=== PATIENT | female | born 1955 | race Caucasian/White ===

== ENCOUNTER 2024-03-10 06:21 | Observation (INO) ==
--- NOTE | 2023-11-04 10:05 | PAT Medication Instructions ---
Medication Instructions Date of Service November 04, 2023 Home Medications Medication Instructions Recorded Wheeled Walker #1 ea 11/08/22 meloxicam 15 mg tablet 15 mg PO DAILY PRN pain #30 tabs 09/16/23 acetaminophen 325 mg tablet (Tylenol) 325 mg PO QID PRN Pain lisinopril 20 mg-hydrochlorothiazide 25 mg tablet 1 tab PO QAM omeprazole 40 mg capsule,delayed release 40 mg PO QAM meloxicam 15 mg tablet 15 mg PO DAILY PRN pain multivitamin 1 tab PO QAM ASK your surgeon for instructions meloxicam 15 mg tablet 15 mg PO DAILY PRN pain DO NOT take the morning of surgery lisinopril 20 mg-hydrochlorothiazide 25 mg tablet 1 tab PO QAM multivitamin 1 tab PO QAM Take morning of surgery With a small sip of water, OTHERWISE NOTHING TO EAT OR DRINK AFTER MIDNIGHT: acetaminophen 325 mg tablet (Tylenol) 325 mg PO QID PRN Pain (if needed) omeprazole 40 mg capsule,delayed release 40 mg PO QAM Take evening before surgery acetaminophen 325 mg tablet (Tylenol) 325 mg PO QID PRN Pain (if needed) Other Notes If you have any questions please call us at [phone] or [phone] or [phone] or [phone]
--- NOTE | 2023-11-10 10:15 | Anesthesiology Consultation ---
Date of Service November 10, 2023 Assessment & Plan (1) Encounter for pre-operative examination: - Check CBC with diff DOS (receiving perioperative Zarxio perioperative protocol per [facility] heme) - Infectious disease screening: Per assessment on 11/10/23: No known infectious disease contacts or current infectious disease symptoms. No noted recent Covid positive test result. - Outpatient joint assessment: Pt currently scheduled for inpatient pathway. If surgeon requests review for outpatient joint pathway, patient is not recommended candidate for outpatient joint program from anesthesia standpoint based on available information. - [facility] hematology visit (09/23/23): "68-year-old female, who has chronic neutropenia at least since 2017, mild anemia noted in the recent blood workup, no thrombocytopenia, no repeated infections. I reviewed with regarding the bone marrow findings, overall bone marrow does not show any primary bone marrow disorder, no evidence of leukemia lymphoma or myelodysplastic syndrome. NGS checkup negative, normal female chromosome noted.. Peripheral destruction would be the possible cause for neutropenia in her case, could be autoimmune. No stigmata of underlying autoimmune disorder. At present will observe. No repeated infections.. She is going for right knee replacement surgery by Dr. Jim. I would consider for prophylactic Neupogen (G-CSF) in her case, starting 2 days before the planned surgery and then every other day for about 2 weeks after surgery. Would like to check CBCD before the Neupogen injection and then before the surgery to see how she response with the G-CSF. I am expecting a good response with G-CSF in her case. If she does not go for surgery, I would like to check CBCD every 3 monthly" > D/t insurance coverage, decision for patient to have perioperative Zarxio. - [facility] heme/onc arranging perioperative Zarxio for chronic neutropenia (scheduled injections 12/08 and 12/09). Will recheck CBCD DOS. Chart Review Chart Review: Acceptable Risk for Surgery and Patient seen in Pre Admission Testing Teaching & Discussion Pre-Anesthesia Teaching/Discussion Notes: Instructed NPO after midnight before surgery,except medications with 15 cc of water. Medication instructions provided according to the PAT guidelines. History Surgery Operation Date: 12/10/23 10:40 Proposed Procedures p Right Total Knee Arthroplasty - Hardik Jim MD Height/Weight Height: 5 ft 3 in Weight: 83.8 kg Allergies Allergy/AdvReac Type Severity Reaction Status Date / Time No Known Drug Allergies Allergy Unknown NKDA Verified 11/03/23 15:24 Medications Home Medications Medication Instructions Recorded Confirmed Last Taken acetaminophen 325 mg tablet 325 mg PO QID PRN Pain 01/14/20 11/03/23 01/18/20 09:00 (Tylenol) lisinopril 20 1 tab PO QAM 01/14/20 11/03/23 01/18/20 09:00 mg-hydrochlorothiazide 25 mg tablet omeprazole 40 mg capsule,delayed 40 mg PO QAM 01/14/20 11/03/23 01/19/20 05:15 release Wheeled Walker #1 ea 11/08/22 11/08/22 Unknown meloxicam 15 mg tablet 15 mg PO DAILY PRN pain #30 tabs 09/16/23 11/03/23 Unknown multivitamin 1 tab PO QAM 11/03/23 11/03/23 Unknown Past Medical History Medical History Chronic anemia Leukopenia Monitored by heme (Dr. Maurer/[facility]) History of blood transfusion Perioperative blood transfusion with left TKA Obesity Osteoarthritis GERD (gastroesophageal reflux disease) HTN (hypertension) Exercise / Class Metabolic Activity II 4-5 Yardwork/Stairs/Walk up hill Past Family History Family History Other No family history of adverse response to anesthesia Past Surgical History Surgical History History of carpal tunnel release of both wrists History of arthroscopy of left knee History of cataract surgery R/L History of tooth extraction History of section x2 History of knee replacement procedure of left knee Past Anesthesia History No Hx of Anesthesia Complications and No Family Hx of Anesthesia Complications History of PONV No Hx of PONV and No Hx of Motion Sickness Social History Smoking Status: Never smoker Do You Dip or Chew Tobacco: No Hx Alcohol Use: No (hx-no longer drinks) Hx Substance Use: No substance use type: does not use Review of Systems Patient denies chest pain, shortness of breath, dyspnea on exertion, fever, chills, cough, wheezing, palpitations. Physical Exam Vital Signs VITALS BP 157/88 P 81 TEMP 97.9 SP02 98%RA RESP 16 PHYSICAL Full cervical extension range of motion. Full TMJ range of motion. TMD 3 finger breaths Mallampati Score 2 Lungs: clear throughout to auscultation Cardiac: regular rate and rhythm, no murmurs noted Spine: normal Carotid arteries: negative bruit Extremities: trace non-pitting LE edema Lab Results Anesthesia Preop Results Results Anesthesia Widget: WBC 1.84 K/ul (4.8-10.8) L 11/10/23 Hgb 10.7 g/dl (12.0-16.0) L 11/10/23 Hct 33.9 % (37.0-47.0) L 11/10/23 Plt 273 K/uL (130-400) 11/10/23 Na 140 mmol/L (136-145) 11/10/23 K 4.6 mmol/L (3.5-5.1) 11/10/23 Cl 106 mmol/L (98-107) 11/10/23 CO2 28 mmol/L (21-32) 11/10/23 BUN 31 mg/dl (6-23) H 11/10/23 Creat 0.72 mg/dl (0.6-1.2) 11/10/23 Glucose Level 93 mg/dl (70-99(Fasting)) 11/10/23 PT 10.4 Seconds (9.0-12.0) 11/10/23 PTT 30 Seconds (21-31) 11/10/23 INR 0.9 (0.9-1.1) 11/10/23 Blood Type O Positive 11/10/23 Antibody Screen NEGATIVE 11/10/23 Testing Laboratory Results *Critical neutrophil count on preop labs 11/10/23- PCP/heme made aware* Electrocardiogram Date: 11/10/23 NSR at 79bpm. RBBB. Chest X-Ray Date: 11/10/23 FINDINGS: PA and lateral chest radiographs are compared to study dated 11/25/2022. The heart is top normal for projection noting atherosclerotic calcification of the thoracic aorta. Chronic interstitial thickening similar to previous. The lungs and pleural spaces are clear. There is no pneumothorax. The skeletal structures are osteopenic. The bony thorax appears intact. Degenerative change is noted in the shoulders and spine. IMPRESSION: No active disease in the chest.
--- NOTE | 2023-11-10 12:57 | Communication Note ---
Patient had critical neutrophil count called in from the lab on 11/10/23 at 0.50. This was called to [facility] heme office who will send note to Dr. Maurer. Neutrophil and WBC ct stable from 10/2022. Has chronic neutrophilia which she follows with [facility] heme. Planning on getting Neupogen prior to surgery per 08/2023 note. CBC with diff was faxed to heme office for continuity of care.
--- NOTE | 2024-03-03 10:03 | History & Physical Report ---
Date of Service March 03, 2024 Assessment & Plan (1) Arthritis of knee, right: 68-year-old female with history of underlying leukopenia of unclear etiology with advanced right knee DJD. She also had her left knee replaced about 14 years ago and is still having some discomfort in this. Had a negative workup in the past. Plan: We discussed treatment options with the patient. She been through extensive conservative treatment of the right knee over the past 5 years. This become less successful. She become more debilitated by her pain. She like to have her right knee replaced. She does have this unexplained neutropenia followed by Dr. Maurer. They have scheduled her to get some injections in the perioperative period. Will likely put some antibiotics in her cement to decrease her risk of infection. There is cements of total knee replacement were explained to the patient and include but not limited to DVT PE infection neurological and vascular bleeding palm pain limb range of motion sepsis fairly with symptoms incomplete relief of symptoms need for further surgery in the future excetra. Patient understands and desires to proceed. Informed consent is obtained. Left to make sure she is arranged to get these injections. Will plan on DVT prophylaxis including thigh-high teds, aspirin, SCDs. She is planning on using [facility] home health program. (2) Painful total knee replacement, left: History of Present Illness Chief Complaint: . Persistent right knee pain Primary Care Provider: Renetta Blood MD . Patient is a 68-year-old female has been a long-term patient of ours for treating her right knee. She is got a long history of knee arthritis had her left knee replaced by Dr. Christopher zambrano in May 2010. She is doing okay but always had some chronic pain and dyspnea. She has been through extensive conservative treatment of her right knee. She was actually scheduled for knee replacement surgery a year ago but canceled due to low white blood count. This is been followed and managed by Dr. Maurer at [facility]. She is undergoing some intermittent transfusions. Had an extensive workup including a bone biopsy which did not show too much. She continues to be bothered by her right knee pain. She been through extensive conservative treatment over the past 5 years including injections which have become less successful over time. She now like to proceed with right knee replacement. Of note, she was scheduled with the previously but had to have a tooth removed several weeks ago. She has recovered from this. She like to have her right knee fixed. Allergies Allergy/AdvReac Type Severity Reaction Status Date / Time No Known Drug Allergies Allergy Unknown NKDA Verified 02/27/24 11:00 Home Medications Medication Instructions Recorded Confirmed Type lisinopril 20 1 tab PO QAM 01/14/20 02/27/24 History mg-hydrochlorothiazide 25 mg tablet omeprazole 40 mg capsule,delayed 40 mg PO QAM 01/14/20 02/27/24 History release Wheeled Walker #1 ea 11/08/22 11/08/22 Rx meloxicam 15 mg tablet 15 mg PO DAILY PRN pain #30 tabs 09/16/23 02/27/24 Rx multivitamin 1 tab PO QAM 11/03/23 02/27/24 History Past Med/Surg History Medical History (Updated 03/03/24 @ 10:01 by Hardik Jim MD) Painful total knee replacement, left History of abscessed tooth (~12/2023) reason most recent right knee surgery cancelled Chronic anemia Leukopenia Monitored by heme (Dr. Maurer/[facility]) History of blood transfusion Perioperative blood transfusion with left TKA Osteoarthritis GERD (gastroesophageal reflux disease) HTN (hypertension) Surgical History Hx of bilateral cataract extraction History of carpal tunnel release of both wrists History of arthroscopy of left knee History of tooth extraction History of section x2 History of knee replacement procedure of left knee Family History Other No family history of adverse response to anesthesia Social History Smoking Status: Never smoker Second Hand Exposure: No; Do You Dip or Chew Tobacco: No; Hx Alcohol Use: No Hx Substance Use: No Preferred Language: Faroese Communication Ability: Effective Staff Electrical Engineer Required: No Beliefs That Will Affect Care: None Current Living Situation: Spouse Feels Safe at Home: Yes Assistive Devices: None Review of Systems All systems reviewed & are unremarkable except as noted in HPI & below. Physical Exam . Physical exam nation reveals a pleasant middle-age female but looks in pretty good health. Examination the right knee brought patient walks a bit of a stiff knee gait. She limps on the right side. Good varus alignment to her knee. Her knee is fairly stiff with about a 10 to 15 degree flexion contracture and only bends about 95 degrees. She does have a small to moderate-sized knee effusion. No particular pain with hip motion. Examination left knee reveals well-healed incision. No detectable swelling. Fairly anatomic alignment. Range of motion 0-1 20. Constitutional WD/WN, vitals as above Neck trachea midline, no thyromegaly Respiratory normal respiratory effort, lungs clear to auscultation Cardiovascular RRR, no murmur, no edema Gastrointestinal (Abdomen) normal bowel sounds, soft, nontender, no hepatosplenomegaly Results & Data Results & Data Laboratory Results . Diagnostic Findings . X-rays of the right knee were reviewed. Shows advanced right knee DJD. She got complete loss of medial joint space. She has subchondral sclerosis. She is got osteophytes primarily medially. This has progressed over up films over the past several years. The left knee replacement looks to be in pretty good position without obvious signs of problems. May have said a little bit on the medial side. No signs of bone destruction or loosening. PG Care Time/CCT Total # of Minutes Spent Total Time Spent with Patient: Total time spent is greater than 50% in coordination of care (as documented) at patient's floor/unit and/or counseling patient: Coding Level of Care Code None Diagnoses Arthritis of knee, right M17.11 Painful total knee replacement, left T84.84XA; Z96.652
[2024-03-10] MEDS ORDERED: ROPIVACAINE 0.5% 5 MG/ML 30 ML VIAL ONE (06:26)
[2024-03-10] MEDS ORDERED: BUPIVACAINE 0.5 % 5 MG/1 ML PF 10ML VIAL ONE (06:26)
--- NOTE | 2024-03-10 06:51 | History & Physical Bridge Note ---
Date of Service March 10, 2024 History & Physical Bridge Note I have examined the patient, reviewed the History & Physical and in the interval since the performance of the History & Physical I have noted the following changes of clinical significance: no changes noted
[2024-03-10] MEDS: Scopolamine 1 MG TDSY TD SCH (07:22)
[2024-03-10] MEDS: dexAMETHasone**PF** 10 MG/ML VIAL IV SCH (07:22)
[2024-03-10] MEDS: LR 500ML BOLUS, THEN 15ML/HR IV SCH (07:22)
[2024-03-10] MEDS: METOCLOPRAMIDE HCL 10 MG TABLET PO SCH (07:23)
[2024-03-10] MEDS: CeleBREX 200 MG CAP PO SCH (07:23)
[2024-03-10] MEDS: LR 60ML/HR IV SCH (07:23)
[2024-03-10] MEDS: ACETAMINOPHEN 500 MG TAB PO SCH ×2 (07:23→13:06)
[2024-03-10] MEDS: FAMOTIDINE 20 MG TAB PO SCH (07:24)
[2024-03-10] MEDS ORDERED: MIDAZOLAM HCL 1 MG/ML 2ML VIAL ONE (07:24)
[2024-03-10] MEDS ORDERED: PROPOFOL IV EMULSION 10 MG/ML 20 ML VIAL IV ONE ×2 (07:29→10:46)
[2024-03-10 07:40] LABS: Partial Thromboplastin Ratio 1.1; Partial Thromboplastin Time 30 Seconds (21-31); Prothrombin Time 10.7 Seconds (9.0-12.0)
[2024-03-10 07:48] LABS: Calcium 9.5 mg/dl (8.6-10.3); Potassium 3.8 mmol/L (3.5-5.1)
[2024-03-10 07:52] LABS: Hematocrit (blood only) 35.4 % (37.0-47.0); Hemoglobin 11.2 g/dl (12.0-16.0); Mean Corpuscular Hemoglobin 28.6 pg (25.0-34.0); Mean Corpuscular Hgb Conc 31.6 g/dL (32.0-36.0); Mean Corpuscular Volume 90.3 fL (80.0-100.0); Platelet Count 238 K/uL (130-400); RDW Coefficient of Variation 12.8 % (11.5-14.5); RDW Standard Deviation 41.9 fL (36.4-46.3); Red Blood Count 3.92 M/uL (4.20-5.40)
[2024-03-10 07:53] LABS: Basophils # (auto) 0.08 K/uL (0.00-0.20); Basophils % (auto) 1.1 %; Dohle Bodies 2+; Eosinophils # (auto) 0.14 K/uL (0.00-0.50); Eosinophils % (auto) 1.9 %; Immature Granulocytes # (auto) 0.04 K/uL (0.01-0.20); Immature Granulocytes % (auto) 0.5 %; Lymphocytes # (auto) 1.06 K/uL (1.20-3.40); Lymphocytes % (auto) 14.1 %; Monocytes # (auto) 0.73 K/uL (0.11-0.59); Monocytes % (auto) 9.7 %; Neutrophils # (auto) 5.45 K/uL (1.40-6.50); Neutrophils % (auto) 72.7 %
[2024-03-10 07:54] LABS: BUN Creatinine Ratio 43.7 (10-20); Est GFR (African American) 102.9 ml/min; Est GFR (Non-African American) 88.8 ml/min
[2024-03-10] MEDS ORDERED: HYDROmorphone INJ 2 MG/ML SYR/VIAL IV PRN (08:51)
[2024-03-10] MEDS ORDERED: ONDANSETRON INJ 2 MG/ML 2 ML VIAL IV PRN ×2 (08:51→12:14)
[2024-03-10] MEDS ORDERED: ATROPINE SULFATE 0.1 MG/ML 10ML SYR IV PRN (08:51)
[2024-03-10] MEDS ORDERED: ePHEDrine sulfate 50 MG/ML AMP IV PRN (08:51)
[2024-03-10] MEDS ORDERED: fentaNYL citrate PF 100 MCG/2 ML VIAL IV PRN (08:51)
[2024-03-10] MEDS ORDERED: PROMETHAZINE HCL 6.25 MG in SODIUM CHLORIDE 0.9% 50 ML IV PRN (08:51)
[2024-03-10] MEDS: ceFAZolin 2000MG 2,000 MG/15 ML SYR IV SCH ×2 (09:22→17:05)
[2024-03-10] MEDS: ROPIV 0.5% 246mg, Ketorolac 30mg, EPINEPHrine 0.5mg in NSS INFIL SCH (10:17)
[2024-03-10] MEDS: VANCOMYCIN HCL 1000MG/20ML VIAL ONE (10:18)
[2024-03-10] MEDS: ORTHO JOINT ANESTHETIC ONE (10:18)
[2024-03-10] MEDS: TRANEXAMIC ACID 1,000 MG **IV Intra-op IV SCH (10:20)
--- NOTE | 2024-03-10 11:22 | Operative Report ---
PG Post Operative Report Pre & Post Diagnosis Operation Date: 03/10/24 08:50 Pre-Op Diagnosis: Right Knee Degenerative Joint Disease Post-Op Diagnosis: Right Knee Degenerative Joint Disease I identified the patient and participated in the time-out.: Yes Procedure Operation Date: 03/10/24 08:50 Actual Procedures p Right Total Knee Arthroplasty, Cemented(Right) - Hardik Jim MD Surgeon Hardik Jim MD Industrial Recruiter Delmer Diaz PA-C Estimated Blood Loss 50 Findings Consistent with Post-Op Diagnosis Operative findings revealed advanced right knee tricompartment DJD. She had extensive grade 4 [id number]-yh-aazi disease in all 3 compartments. She had a very stiff. 10 degree flexion contracture and only can bend about 90 degrees. There was a lot of scarring and adherence of the soft tissues to the bone. Diffuse osteopenia. Osteophytes in all 3 compartments. Specimens Right knee sent for pathology Anesthesia Type Spinal MAC Complications none Disposition Accompanied Patient To Recovery: No Indications Patient is a 68-year-old female is had a long history of knee problems. She had her left knee replaced in the past. Over the years she developed increased pain discomfort and stiffness in her right knee. She been scheduled for surgery on several occasions but canceled for various reasons. She has not been medically optimized and is electing to proceed with total knee arthroplasty. She had a very stiff painful knee preoperatively. Description of Procedure Operative implants consist of: 1 Biomet Vanguard size 65 right posterior by femoral component. 2. Biomet size 67 tibial tray. 3. 10 mm post stabilized polyethylene insert. 4. 31 x 8 all poly patella. The patient was taken to the operating, identified, placed on the operating tab le in the supine position. All contact areas were appropriately padded antibiotics 5 by anesthesia team. Spinal anesthetic and abductor canal block had been provided in the holding area. Fatima catheter was placed in sterile fashion. Right thigh-high tourniquet was then placed in the right lower extremities then prepped and draped in usual sterile fashion. The right leg was elevated exsanguinated with use of an Esmarch and the tourniquet was placed at 300 mmHg. An anterior approach of the right knee was then performed to longitudinal incision centered over the patella. Sharp dissection was carried through subcutaneous tissue down the extensor mechanism. A medial parapatellar arthrotomy was made. Some subperiosteal dissection was carried out medially. I had to do a synovectomy of the suprapatellar pouch as well as the medial and lateral gutters as well as quad tendon instructions were adherent to the bone itself in the distal femur. Tissue itself was benign in appearance. The lateral patellofemoral ligament was released and the knee was flexed. The osteophytes taken off distal femur. The ACL and PCL were released in the distal femur and the tibia subluxated anteriorly. The external tibial alignment jig was then placed the interface the tibia and adjusted 12 mm medially. Proximal tibial cut was made essentially flush with the most deficient aspect the posterior medial tibial plateau. Some osteophytes taken off medially. Tibia was sized to a size 67. Attention drawn the femur. The distal femur down the sharp drop with intramedullary canal was suction. A right 5 degree valgus cutting guide was placed. The distal femoral cutting block was pinned in place. The distal femoral cut was made to take an additional 3 mm of bone off distal femur. The femur was then sized to a size 65. The AP cutting block was pinned parallel to the epicondylar axis which was 4 degrees of external rotation. The anterior cut, anterior chamfer, posterior cut, posterior chamfer cuts were made. The box cutting guide was placed in just slight lateral and the box cut was made. The knee was flexed. The remnants of the medial and lateral menisci were excised. The osteophytes taken off the posterior aspect of femur. A trial femoral component was placed. The tibial tray was pinned Ashely external rotation and the drill and stem punch used to create defect in proximal tibia for the tibial tray. Knee was then trialed and 10 mm insert fit most appropriately. Attention drawn the patella. Patella was cleaned of all soft tissues. Patella thickness measured 20 mm in thickness was cut down to 12. Was sized to a size 31 patella. The lug holes were drilled for 31 patella. The lateral osteophyte was removed. Patella button was placed. Knee was taken through range of motion patella tracked nicely with no thumbs test. Attention drawn to place the permanent components. Nupathe all trial components were removed. Bone plug was placed into this femur limit blood loss. Double batch Palacos G cement was mixed. I did add an additional gram of vancomycin to her cement that she is got some degree of immunosuppression. A Biomet Vanguard size 65 posterior stabilized femoral component, a size 67 tibial tray, a 10 mm post stabilized polyethylene insert, and a 31 x 8 all poly patella then cemented in place. Knee was brought out into full extension till cement hardened. Final cement check was then performed. The pericapsular tissues were injected with total of 100 cc of orthopedic joint mix. Patient did receive 1 g tranexamic acid. The tourniquet was then let down for final tourniquet time of 60 minutes. Hemostasis assured use electrocautery. Extensor Meclomen closed with combination 1 PDS suture and #1 Vicryl suture in a [id number] fashion. Extensor Metros's and was checked and found to be intact the subcutaneous tissue then closed with 2 Dexon suture in a buried fashion skin was closed skin lindsey. Leg was then cleaned and dried and sterile dressing with Xeroform, 4 fours, sterile cast padding, Deniz bandage were applied. The patient then transferred to the recovery in stable condition. Patient tolerated procedure well and there were no complications. Delmer Diaz, my physician lpn or medical assistant, was present for the entire procedure. His assistance was essential and required for appropriate patient positioning, prepping and draping, surgical exposure, performing the technical details of the operation, placement the implants, closure of the wound, and placement of the sterile bandage. I attest to the content of the Intraoperative Record and any orders documented therein. Any exceptions are noted below.
--- NOTE | 2024-03-10 11:35 | XRay Report ---
RIGHT KNEE 2 VIEWS History: Right total knee arthroplasty. Degenerative arthritis. Postop. FINDINGS: The patient is status post a right total knee arthroplasty. The hardware is intact. No frac ture or dislocation. Skin lindsey are in place. IMPRESSION: Right total knee arthroplasty. No evidence for hardware complication. ACT 112: Negative or not required by law. Electronically signed by: Leo Mirza M.D. 03/10/2024 11:33 AM
--- NOTE | 2024-03-10 12:05 | Anesthesiology Progress Note ---
Date of Service March 10, 2024 Anesthesia Post Procedure Vital Signs Vital Signs: Temp Pulse Resp BP Pulse Ox O2 Del Method O2 Flow Rate 03/10/24 12:00 36.2 C L 82 16 132/74 96 Room Air 03/10/24 11:50 36.2 C L 77 16 132/74 96 Room Air 03/10/24 11:40 77 16 132/72 96 Oxymask 5 03/10/24 11:30 81 16 129/75 99 Oxymask 5 03/10/24 11:20 80 16 121/80 100 Oxymask 5 03/10/24 11:10 36.0 C L 80 15 112/66 100 Oxymask 5 03/10/24 06:56 36.7 C 98 H 16 164/89 H 98 Room Air Pain Intensity Right Knee: Pain Intensity: 2 Transfer of Care Handoff Completed per policy Notes Mental Status: alert / awake / arousable and participated in evaluation Patient Amnestic to Procedure: Yes Nausea / Vomiting: adequately controlled Pain: adequately controlled Airway Patency, RR, SpO2: stable & adequate BP & HR: stable & adequate Hydration State: stable & adequate Anesthetic Complications: no major complications apparent
[2024-03-10] MEDS ORDERED: METOCLOPRAMIDE HCL INJ 5 MG/ML 2 ML VIAL IV PRN (12:14)
[2024-03-10] MEDS ORDERED: bisacodyL 10 MG SUPP PR PRN (12:14)
[2024-03-10] MEDS ORDERED: ALUMINUM/MAGNESIUM SUSP 30 ML UDC PO PRN (12:14)
[2024-03-10] MEDS ORDERED: NALOXONE HCL 0.4 MG/1 ML VIAL/CARP IV PRN (12:14)
[2024-03-10] MEDS ORDERED: HYDROmorphone INJ 0.5 MG/0.5 ML SYR IV PRN (12:14)
[2024-03-10] MEDS ORDERED: MAGNESIUM HYDROXIDE SUSP 30 ML UDC PO PRN (12:14)
[2024-03-10] MEDS: SODIUM CHLORIDE 0.9% 1,000 ML IV SCH (12:28)
[2024-03-10] MEDS: KETOROLAC TROMETHAMINE 15 MG/ML VIAL IV SCH (13:05)
--- NOTE | 2024-03-10 14:45 | Hospitalist Consultation ---
Date of Consultation March 10, 2024 Assessment & Plan (1) Osteoarthritis of right knee: Jeannette is a 68-year-old female with a past medical history of essential hypertension, GERD, osteoarthritis, leukopenia seen for postoperative medical management consultation following right knee TKA Right total knee arthroplasty 2/2 OA 50 cc blood loss, s/p TKA on 03/10/2024 Pain control, DVT prophylaxis, activity per primary team Leukopenic management as noted below Leukopenia, anemia Since 2016, follows with [facility] oncology. With concurrent mild anemia and normal platelet count, unremarkable bone marrow on prior biopsy. Patient was recommended for prophylactic G-CSF 2 days prior to surgery and then every other day for 2 weeks. CBC prior and trending recommended to follow response to G-CSF WBC count 03/10/2024 7.5, absolute neutrophil 5.45. Received GCSF treatmentOn 03/08 and 03/09. CBC daily. Continue Zarxio starting 03/11 every other day for 2 weeks. Patient has this at home, and will have this brought in 03/11 to initiate dosing. Recommend CBC at least weekly while on this. Expect a rapid rise in leukocytes, patient counseled to monitor for infectious symptoms as her WBC will be unreliable marker in the event of a postop infection. At time of assessment she has no pain, feels well, no fever/c hills/sweats. Incentive spirometer provided and encouraged Hemoglobin 11.2, stable with baseline around 10.7/10.9 on prior checks. She is not thrombocytopenic. Denies history of GI bleed/melena. She has not had a colonoscopy, while chronic anemia is likely due to her underlying production deficiency recommend she follow-up with GI as outpatient for colorectal cancer screening. Iron studies have been added to morning labs in addition to B12/folate CBC currently stable, no indication for transfusion at time of assessment. She is with good blood pressure and no tachycardia. Hypertension Reasonable control, 140/76 postop. May resume lisinoprilHCTZ 03/11 GERD Convert omeprazole to Protonix while inpatient (2) Leukopenia: (3) HTN (hypertension): (4) GERD (gastroesophageal reflux disease): (5) Chronic anemia: History of Present Illness Attending Physician: Hardik Jim MD History of Present Illness 68-year-old female with a past medical history of leukopenia with normal bone marrow biopsy who presented for scheduled right total knee arthroplasty due to OA. She is seen for consult for medical management of comorbidities. Hypertension is generally well-controlled on lisinopril/hydrochlorothiazide. She reports that she does have a longstanding history of leukopenia with no recurrent infections or complications, but has had chronically low total leukocyte levels and has been neutropenic in the past. She follows with [facility] oncology. She received preoperative clearance, and was prescribed GCSF stimulating agents which she took Friday/Friday and was told that she would take every other day following surgery. She has these at home but not with her. She is not sure if she needs additional blood work with us. She seems a bedside postop and reports she feels very well. Has some qualitative numbness in her foot which is going away postanesthesia, and endorses intact sensation in all 5 digits although still remains somewhat decreased compared to the left. She has no pain at bedside assessment. She denies chest pain, chest pressure, shortness of breath, difficulty breathing, nausea, vomiting, abdominal pain. No history of bright red blood per rectum/GI bleed. No fever/chills. No infectious symptoms. Medical History: Reviewed Medications: Reviewed Surgical History: Reviewed Family history: Reviewed Allergies: Reviewed Social History: Reviewed, denies tobacco/alcohol use Code Status: Full code Allergies Allergy/AdvReac Type Severity Reaction Status Date / Time No Known Drug Allergies Allergy Unknown NKDA Verified 03/10/24 06:52 Home Medications Medication Instructions Recorded Confirmed Type lisinopril 20 1 tab PO QAM 01/14/20 03/10/24 History mg-hydrochlorothiazide 25 mg tablet (Zestoretic) omeprazole 40 mg capsule,delayed 40 mg PO QAM 01/14/20 03/10/24 History release Wheeled Walker #1 ea 11/08/22 11/08/22 Rx meloxicam 15 mg tablet 15 mg PO DAILY PRN pain #30 tabs 09/16/23 03/10/24 Rx multivitamin 1 tab PO QAM 11/03/23 03/10/24 History acetaminophen 500 mg tablet 1,000 mg (2 x 500 mg) PO TID pain 03/08/24 03/10/24 Rx (Tylenol Extra Strength) 30 days #180 tabs aspirin 81 mg tablet,delayed 81 mg PO BID 45 days #90 tabs 03/08/24 03/10/24 Rx release (Carlos Low Dose Aspirin) cefadroxil 500 mg capsule 500 mg PO BID 7 days #14 caps 03/08/24 03/10/24 Rx ketorolac 10 mg tablet 10 mg PO Q6 pain 5 days #20 tabs 03/08/24 03/10/24 Rx ondansetron 4 mg disintegrating 4 mg PO Q8 PRN nausea #20 tabs 03/08/24 03/10/24 Rx tablet oxycodone 5 mg tablet 5 - 10 mg (1 - 2 x 5 mg) PO Q6 PRN 03/08/24 03/10/24 Rx pain #40 tabs sennosides 8.6 mg tablet (Senokot) 8.6 mg PO BID prevent constipation 03/08/24 03/10/24 Rx 14 days #28 tabs Patient History Medical History (Updated 03/10/24 @ 14:43 by Samir Corcoran MD) Painful total knee replacement, left History of abscessed tooth (~12/2023) reason most recent right knee surgery cancelled Chronic anemia Leukopenia Monitored by heme (Dr. Maurer/[facility]) History of blood transfusion Perioperative blood transfusion with left TKA Osteoarthritis GERD (gastroesophageal reflux disease) HTN (hypertension) Surgical History Hx of bilateral cataract extraction History of carpal tunnel release of both wrists History of arthroscopy of left knee History of tooth extraction History of section x2 History of knee replacement procedure of left knee Family History Other No family history of adverse response to anesthesia Social History Smoking Status: Never smoker Second Hand Exposure: No; Do You Dip or Chew Tobacco: No; Tobacco Cessation Education Requested by Patient: No Hx Alcohol Use: No Hx Substance Use: No Preferred Language: Tuvaluan Communication Ability: Effective [employer]airer Tr[employer] Dies Required: No Beliefs That Will Affect Care: None Current Living Situation: Spouse Other Information That Helps Us Care for You: No Feels Safe at Home: Yes Safety Concerns: Feels Safe At This Time Assistive Devices: Cane Physical Exam Physical Exam: General: A&Ox3. NAD. Cooperative. HEENT: Atraumatic, normocephalic. Pulm: CTAB A&P. -wheezes, -rales, -rhonchi. Symmetrical chest rise. No increased work of breathing. No respiratory distress. Cardiac: RRR, -mrg. Radial pulses intact and symmetrical. Abdominal: Nontender, nondistended, soft. BS present. Extremities: Right knee in postoperative wrap. Right lower extremity with intact sensation to soft touch although qualitatively diminished compared to the left. PT pulse intact bilaterally and brisk. Ankle dorsiflexion/plantarflexion are intact bilaterally without deficit Results & Data Results & Data Vital Signs (Past 12 Hours) Vital Signs Temp Pulse Pulse Resp BP Pulse Ox O2 Del Method 03/10/24 14:16 36.4 C L 83 16 144/76 H 98 Room Air 03/10/24 13:15 36.6 C 70 16 144/82 H 98 Room Air 03/10/24 12:44 36.3 C L 76 16 138/79 97 Room Air 03/10/24 12:14 36.5 C 79 16 148/88 H 97 Room Air 03/10/24 12:00 36.2 C L 82 16 132/74 96 Room Air 03/10/24 11:50 36.2 C L 77 16 132/74 96 Room Air 03/10/24 11:40 77 16 132/72 96 Oxymask 03/10/24 11:30 81 16 129/75 99 Oxymask 03/10/24 11:20 80 16 121/80 100 Oxymask 03/10/24 11:10 36.0 C L 80 15 112/66 100 Oxymask 03/10/24 06:56 36.7 C 98 H 16 164/89 H 98 Room Air O2 Flow Rate 03/10/24 14:16 03/10/24 13:15 03/10/24 12:44 03/10/24 12:14 03/10/24 12:00 03/10/24 11:50 03/10/24 11:40 5 03/10/24 11:30 5 03/10/24 11:20 5 03/10/24 11:10 5 03/10/24 06:56 PG Care Time/CCT Total # of Minutes Spent Total Time Spent with Patient: Total time spent is greater than 50% in coordination of care (as documented) at patient's floor/unit and/or counseling patient: Coding Level of Care Code 74621 IN/OBS CONSULT LVL 4,60M Diagnoses Osteoarthritis of right knee M17.11 Leukopenia D72.819 HTN (hypertension) I10 GERD (gastroesophageal reflux disease) K21.9 Chronic anemia D64.9
[2024-03-10] MEDS: Scopolamine CHECK PATCH PLACEMENT SCH (16:12)
[2024-03-10] MEDS: ASCORBIC ACID 500 MG TAB PO SCH (17:02)
[2024-03-10] MEDS: TRANEXAMIC ACID / 0.7% NACL 1,000 MG/100 ML BAG IV SCH (17:05)
[2024-03-10] MEDS: ASPIRIN 81 MG ECTAB PO SCH (20:44)
[2024-03-10] MEDS: DOCUSATE SODIUM 100 MG CAP PO SCH (20:44)
[2024-03-10] MEDS: SENNA 8.6 MG TAB PO SCH (20:44)
[2024-03-10] MEDS ORDERED: SENNA 8.6 MG TAB PO SCH (21:00)
[2024-03-11] MEDS: oxyCODONE HCL IR 5 MG TAB (IMMEDIATE RELEASE) PO PRN (03:45)
[2024-03-11 06:47] LABS: Hemoglobin 9.2 g/dl (12.0-16.0); Mean Corpuscular Hemoglobin 28.8 pg (25.0-34.0); Mean Corpuscular Hgb Conc 32.9 g/dL (32.0-36.0); Mean Corpuscular Volume 87.8 fL (80.0-100.0); Mean Platelet Volume 10.9 fL (9.4-12.4); Platelet Count 223 K/uL (130-400); RDW Coefficient of Variation 12.7 % (11.5-14.5); RDW Standard Deviation 40.8 fL (36.4-46.3); Red Blood Count 3.19 M/uL (4.20-5.40); White Blood Count 6.06 K/ul (4.8-10.8)
[2024-03-11 07:03] LABS: BUN Creatinine Ratio 33.7 (10-20); Calcium 8.8 mg/dl (8.6-10.3); Creatinine Clr Calc Pharmacy 56.5 ml/min; Est GFR (African American) 69.7 ml/min; Est GFR (Non-African American) 60.1 ml/min; Potassium 3.7 mmol/L (3.5-5.1)
[2024-03-11 07:12] LABS: Folate (Folic Acid),Ser orPlas 15.74 ng/ml (>5.38)
[2024-03-11 07:22] LABS: Ferritin 47.4 ng/ml (8-388)
[2024-03-11 07:36] LABS: Basophils # (auto) 0.02 K/uL (0.00-0.20); Basophils % (auto) 0.3 %; Eosinophils # (auto) 0.04 K/uL (0.00-0.50); Eosinophils % (auto) 0.7 %; Immature Granulocytes # (auto) 0.02 K/uL (0.01-0.20); Immature Granulocytes % (auto) 0.3 %; Lymphocytes # (auto) 1.07 K/uL (1.20-3.40); Lymphocytes % (auto) 17.7 %; Monocytes # (auto) 0.63 K/uL (0.11-0.59); Monocytes % (auto) 10.4 %; Neutrophils # (auto) 4.28 K/uL (1.40-6.50); Neutrophils % (auto) 70.6 %
[2024-03-11] MEDS: dexAMETHasone 10 MG in SYRINGE 0 ML IV SCH (08:00)
[2024-03-11] MEDS: LISINOPRIL/HCTZ 20/25MG 1 TAB PO SCH (08:01)
[2024-03-11] MEDS: PANTOprazole 40 MG TAB PO SCH (08:02)
[2024-03-11] MEDS: MULTIVITAMIN TAB PO SCH (08:02)
[2024-03-11] MEDS ORDERED: NON-FORMULARY MEDICATION (Multivitamin Tablet) PO SCH (09:00)
--- NOTE | 2024-03-11 09:27 | Orthopedic Progress Note ---
Date of Service March 11, 2024 Assessment & Plan (1) Status post right knee replacement: Overall, she is doing quite well today with good pain control to the right knee. She has already worked this morning with physical therapy working on ambulation and range of motion exercises. She is on aspirin for DVT prophylaxis. She can be discharged home later this morning pending formal physical therapy evaluation recommendations. She will follow-up with Dr. Jim in 2 weeks for postoperative management. Subjective Lucero Wallace was seen this morning resting comfortably in no apparent distress. She notes that her pain is well-controlled to the right knee. She has been up and out of bed with no significant issues. She has seen physical therapy this morning and was able to do ambulation and range of motion exercises without any significant discomforts or issues. She denies any other concerns today. Review of Systems All systems reviewed & are unremarkable except as noted in HPI & below. Physical Exam . On physical examination of the right knee, dressings are clean, dry, intact. Her leg is out in full extension. She has active plantarflexion dorsiflexion of the right ankle. +2 DP and PT pulses. Less than 2-second capillary refill. Normal sensation. Neurovascular intact. Results & Data Results & Data Laboratory Results . Diagnostic Findings . Postoperative x-rays of the right knee show prosthesis to be in anatomical alignment with no signs of fracture complication or loosening. PG Care Time/CCT Total # of Minutes Spent Total Time Spent with Patient: Total time spent is greater than 50% in coordination of care (as documented) at patient's floor/unit and/or counseling patient: Coding Level of Care Code 76141 Post Operative Follow-Up Diagnoses Status post right knee replacement Z96.651
--- NOTE | 2024-03-11 09:29 | Discharge Summary ---
Date of Service March 11, 2024 Admission HPI (Per Admitting) . Patient is a 68-year-old female has been a long-term patient of ours for treating her right knee. She is got a long history of knee arthritis had her left knee replaced by Dr. White back in May 2010. She is doing okay but always had some chronic pain and dyspnea. She has been through extensive conservative treatment of her right knee. She was actually scheduled for knee replacement surgery a year ago but canceled due to low white blood count. This is been followed and managed by Dr. Maurer at [facility]. She is undergoing some intermittent transfusions. Had an extensive workup including a bone biopsy which did not show too much. She continues to be bothered by her right knee pain. She been through extensive conservative treatment over the past 5 years including injections which have become less successful over time. She now like to proceed with right knee replacement. Of note, she was scheduled with the previously but had to have a tooth removed several weeks ago. She has recovered from this. She like to have her right knee fixed. Admission Exam (Per Admitting) . Physical exam nation reveals a pleasant middle-age female but looks in pretty good health. Examination the right knee brought patient walks a bit of a stiff knee gait. She limps on the right side. Good varus alignment to her knee. Her knee is fairly stiff with about a 10 to 15 degree flexion contracture and only bends about 95 degrees. She does have a small to moderate-sized knee effusion. No particular pain with hip motion. Examination left knee reveals well-healed incision. No detectable swelling. Fairly anatomic alignment. Range of motion 0-1 20. Principal Diagnosis Same as "Discharge Diagnosis" noted below under Discharge Instructions. Discharge Exam . On physical examination of the right knee, dressings are clean, dry, intact. Her leg is out in full extension. She has active plantarflexion dorsiflexion of the right ankle. +2 DP and PT pulses. Less than 2-second capillary refill. Normal sensation. Neurovascular intact. Discharge Data Consultations 03/10/24 12:14 Consult Hospitalist Routine Procedures Performed Operation Date: 03/10/24 08:50 Actual Procedures p Right Total Knee Arthroplasty, Cemented(Right) - Hardik Jim MD Ordered Studies 03/10/24 05:00 US - OR guided needle placemen Routine Hospital Course (1) Status post right knee replacement: On March 10, 2024 Madison arrived at [facility] and underwent a right total knee arthroplasty performed by Dr. Jim with no complications. She had a spinal anesthetic. Postoperatively, she was started on aspirin for DVT prophylaxis and transferred to the general orthopedic floor in stable condition. Her hospital course was uneventful. On postoperative day #1, her vital signs are stable and her pain was well-controlled. She participated well with physical therapy working on ambulation and range of motion exercises. She was then discharged home in stable condition. She will follow-up with Dr. Jim in 2 weeks for postoperative management. PG Care Time/CCT Total # of Minutes Spent Total Time Spent with Patient: Total time spent is greater than 50% in coordination of care (as documented) at patient's floor/unit and/or counseling patient: Discharge Plan Discharge Items Patient Disposition: Home - Home Health Services Reason For Visit: Right Knee DJD Discharge Diagnosis: Right Knee Replacement Activity: Per Instructions section Weightbearing: Full weightbearing Non-emergency contact: Surgeon Call non-emergency contact if: you have any medication questions Follow-up/Referrals: Renetta Blood MD [Primary Care Provider] - Diet: Regular Addtl Attending Provider Instructions: ACTIVITY RECOMMENDATIONS: Physical Therapy: * You will go to physical therapy three times each week for four to six weeks after your surgery in order to regain your knee range of motion and to retrain your knee to work properly. * It is just as important to make sure you are getting your knee perfectly straight as it is to regain your knee bend. * Taking a pain pill an hour before therapy can help you have a more productive and comfortable therapy session. Home Exercise: * You were shown a series of exercises (heel props, heel slides, etc.) in the hospital. Do these exercises three to four times each day including the exercises you were shown in physical therapy. Walking: * Get up and walk several times each day. For the first four weeks, try not to stand or walk for more than one hour at a time. If you do stand or walk for more than one hour, you will not hurt anything, but your knee and leg will likely swell. * As you feel comfortable, you may change from the walker or crutches to a cane and then to independent walking. MEDICATIONS: New Medicine: * You will likely be taking one or more of these medications: 1. Oxycodone - A quick and shorter-acting pain medication. Take one to two tablets every six hours to lessen your pain. 2. Aspirin - Thins your blood to lessen the chance of forming a blood clot. * The most common side effects of pain medicine and iron are nausea and constipation. If nausea or constipation is too much of a problem or if you have any questions about your new medicines or doses, call [facility] at [phone]. We will try to help you manage these issues. "VERY IMPORTANT TO READ AND REVIEW" Pain: * The immediate post-operative period after knee replacement surgery is often quite painful. * You are given a prescription for pain medicine. You should take it, as directed, when you need it, especially before physical therapy and before going to bed. Pain that interferes with sleep is very common and can last several months. * You will likely need pain medicine for the first four to six weeks. It will not stop all of the pain. The pain will lessen and as you feel better, you may change to milder pain medicine such as Tylenol. * The most common side effects of pain medicine are nausea and constipation, so don't take more than you need. SPECIAL CARE INSTRUCTIONS: TEDs/Elastic Stockings: * The white elastic stockings help limit swelling and prevent blood clots from forming in your legs. The more you wear them, the more they work. * Wear them for six weeks after knee replacement surgery and four weeks after partial knee replacement. Incision Site Care: * Remove dressing postoperative day 2 and then shower. Keep direct shower pressure off the incision site. * After showering, cover lindsey with dry gauze and change daily or more frequently if the dressing is getting saturated with drainage. * Use the RAY stockings to hold dressing in place. DO NOT apply tape on the skin. * May completely stop using bandage if wound is dry and no drainage * Lindsey are removed between 2 and 3 weeks post-op. If your follow-up appointment is made before 2 weeks, please have your appointment re- scheduled. It is too early to remove the lindsey. Prevention of Infection: * Take antibiotics one hour before any dental cleaning, dental work, urological procedure, gastrointestinal procedure or any invasive surgery in order to prevent your new joint from getting infected. * You may get the antibiotics from the doctor performing the procedure or you may call our office at [phone] before and we will call in a prescription to the pharmacy of your choice. Things to Watch For: * Drainage from the incision site that occurs more than one week after your surgery. * Severely increased knee/leg pain or swelling. * Increased redness at the incision site. * Fever above 102 degrees Fahrenheit. * Unusual chest pain or shortness of breath. * Unusual pain or burning with urination. Call [facility] at [phone] with any of the above problems or if you have any questions about your medicines or recovery. FOLLOW UP VISIT: Make an appointment to see your doctor for approximately two weeks after surgery for a progress check and staple removal by calling the office at [phone]. Pending Studies at Discharge: No Stand-Alone Forms: [facility] [employer], Smoking Cessation Medications and DC Order Prescriptions: Continued sennosides [Senokot] 8.6 mg tablet 8.6 mg PO BID 14 Days Qty: 28 0RF Rx Instructions: Take two times a day to prevent/treat constipation aspirin [Carlos Low Dose Aspirin] 81 mg tablet,delayed release (DR/EC) 81 mg PO BID 45 Days Qty: 90 0RF Rx Instructions: Take to prevent blood clots. acetaminophen [Tylenol Extra Strength] 500 mg tablet 1,000 mg PO TID 30 Days Qty: 180 0RF Rx Instructions: Take 3 times per day to lessen pain. ketorolac 10 mg tablet 10 mg PO Q6 5 Days Qty: 20 0RF Rx Instructions: Take 4 times per day with food for 5 days to lessen pain and swelling. cefadroxil 500 mg capsule 500 mg PO BID 7 Days Qty: 14 0RF Rx Instructions: Take 1 cap twice a day to prevent infection ondansetron 4 mg tablet,disintegrating 4 mg PO Q8 PRN (Reason: nausea) Qty: 20 1RF Rx Instructions: Take as needed for nausea oxycodone 5 mg tablet 5 - 10 mg PO Q6 PRN (Reason: pain) Qty: 40 0RF Rx Instructions: Take as needed for pain (DME) Wheeled Walker Misc See Rx Instructions .MEDSUPPLY Qty: 1 0RF Rx Instructions: As directed omeprazole 40 mg Capsule,Delayed Release(Dr/Ec) 40 mg PO QAM lisinopril-hydrochlorothiazide [Zestoretic] 20-25 mg Tablet 1 tab PO QAM multivitamin Tablet 1 tab PO QAM Discontinued meloxicam 15 mg tablet 15 mg PO DAILY PRN (Reason: pain) Qty: 30 2RF Patient Comments: takes daily QAM Rx Instructions: Take with food Admission Data Admit Date/Time: 03/10/24 11:15 Attending Provider: Hardik Jim Admit Provider: Hardik Jim Primary Care Provider: Renetta Blood Other Providers: Count Includes [facility],Home Health; Vijay Phillips
== END 2024-03-11 12:13 | disposition home health service (06) ==
LOC: ASU 06:21 → 3W 06:21